=== PATIENT | female | born 1970 ===

== ENCOUNTER 2018-12-11 08:07 | Outpatient (CLI) | payer SELFPAY | END 2018-12-11 08:08 | disposition home or self-care (01) | LOC: C.USIC 08:07 | DX: R14.0 Abdominal distension (gaseous) (principal); Z12.31 Encounter for screening mammogram for malignant neoplasm of breast ==

== ENCOUNTER 2018-12-24 08:38 | Outpatient (CLI) | payer OTHER, SELFPAY | END 2018-12-24 08:39 | disposition home or self-care (01) | LOC: C.CTH 08:38 | DX: K76.9 Liver disease, unspecified (principal) ==